=== PATIENT | female | born 1985 | race Caucasian/White ===

== ENCOUNTER 2022-07-03 22:57 | Emergency (ER) | payer BC, SELFPAY ==
[2022-07-03 23:00] VITALS: RESP 18; O2SAT 99
[2022-07-03 23:15] VITALS: BP 145/78; PULSE 78; RESP 18; TEMP 36.4; O2SAT 99; BMI 35.5
--- NOTE | 2022-07-03 23:15 | ED_ITS ---
HPI - Skin/Abscess/Foreign Bdy General Chief complaint: Unspecified Complaint, Adult Stated complaint: Staph infection on hands Time Seen by Provider: 07/03/22 23:06 History of Present Illness HPI narrative: Patient is a 36-year-old woman who comes in with dermatitis on her right posteri or hand. This apparently has been cultured and positive for staph. It is noted that skin cultures are no torn slightly patient is Marii was treated with Bactroban topically in Keflex but she has developed hives from the Keflex. She is in changed to clindamycin. She now has worsening symptoms of dermatitis in the right posterior hand she AR states that her hives which are being treated with hydroxyzine are improving no other problems have been noted no mucous membrane meals. Related Data Home Medications Medication Instructions Recorded Confirmed dicloxacillin 250 mg capsule 500 mg PO QID 07/03/22 07/03/22 hydroxyzine HCl 25 mg tablet 25 mg PO Q6H PRN 07/03/22 07/03/22 Previous Rx's Medication Instructions Recorded mupirocin calcium 2 % topical cream 1 applic topical BID Dermatitis 07/03/22 #30 grams Allergies Allergy/AdvReac Type Severity Reaction Status Date / Time cephalexin [From Keflex] Allergy Intermediate Rash Verified 07/03/22 23:15 sulfamethoxazole AdvReac Mild Headache Verified 07/03/22 23:15 [From Sulfamethoxazole-Trimethoprim] trimethoprim AdvReac Mild Headache Verified 07/03/22 23:15 [From Sulfamethoxazole-Trimethoprim] Review of Systems Status of ROS: Reports: 10 or more systems reviewed and unremarkable except as noted in History and below PFSH PFS Medical History (Updated 07/03/22 @ 23:54 by Jalen Leo RN) ADD (attention deficit disorder) without hyperactivity Adjustment disorder with mixed anxiety and depressed mood Closed nondisplaced fracture of fifth metatarsal bone of left foot Surgical History (Updated 07/03/22 @ 23:54 by Jalen Leo RN) H/O wisdom tooth extraction Social History Smoking Status: Former smoker How often do you have a drink containing alcohol: never How often do you have six or more drinks on one occasion: Never AUDIT-C Alcohol total score: 0 Non-prescribed substance use: denies use Exam Narrative: Exam Narrative: EXAM GENERAL: Patient appears comfortable and well. THYROID: no thyroid nodules or thyromegaly. LYMPH: No supraclavicular or cervical lymphadenopathy. SKIN: Striking dermatitis on the posterior aspect of the right hand with fading hives EXT: No dependent lower extremity pedal edema. HEART: Regular rate and rhythm with no murmurs, rubs, or gallops. LUNGS: Clear to auscultation bilaterally with no crackles or wheezes. ABD: Soft, non tender, non distended. PSYCH: Good eye contact, speech is not pressured. Course Vital Signs Vital signs: Initial Vital Signs Respiratory Rate 18 07/03/22 23:00 Vital Signs Respiratory Rate 18 07/03/22 23:00 Temperature 97.6 F 07/03/22 23:59 Pulse Rate 74 07/03/22 23:59 Respiratory Rate 18 07/03/22 23:59 Blood Pressure 135/74 07/03/22 23:59 Pulse Oximetry 99 07/03/22 23:48 Oxygen Delivery Method 07/03/22 23:48 MDM - Skin/Abscess/Foreign Bdy MDM Narrative Medical decision making narrative: Patient has an amazing dermatitis. I do think that continued treated with antibiotics is reasonable. I regret cindy Almodovar. Will continue her clindamycin. I renewed her prescription for Bactroban and we did dress her dermatitis tonight in the emergency room well. I do suspect she will need see a black mill operator does appears to be a very severe rash. Clear. Discharge Plan Discharge Clinical Impression: Dermatitis Patient Disposition: Home, Self-Care Condition: Stable Instructions: Dermatitis (ED) Additional Instructions: monitor for signs/symptoms of infection. f/u with PCP in next 3-4 days if no improvement Activity Level: No Restrictions Discharge Diet: Regular Prescriptions: New mupirocin calcium 2 % cream 1 applic topical BID Qty: 30 0RF No Action dicloxacillin 250 mg capsule 500 mg PO QID Label Comments: take 1 capsule by mouth (500mg) by mouth 4 times daily before meals and at bedtime for 5 days. hydroxyzine HCl 25 mg tablet 25 mg PO Q6H PRN Stand Alone Forms: [facility] Info Instructions
--- NOTE | 2022-07-03 23:20 | ED.NURSE ---
updated Dr. Mathur about conflict between rocephin as she is allergic to kefex. md xie it was ok to give.
[2022-07-03] MEDS: LIDOCAINE 1% 5 ml (pf) 5 ML VIAL 2.1 ML IM (23:30)
[2022-07-03] MEDS: MUPIROCIN 1 GM PACKET 1 APPLIC TOPICAL (23:30)
[2022-07-03] MEDS: cefTRIAXone 1 GM VIAL IM (23:30)
[2022-07-03 23:48] VITALS: BP 135/74; PULSE 74; RESP 18; TEMP 36.4; O2SAT 99
[2022-07-03 23:59] VITALS: BP 135/74; PULSE 74; RESP 18; TEMP 36.4
== END 2022-07-03 23:59 | disposition home or self-care (01) ==
PROVIDERS: Emergency Provider Internal Medicine; PCP Physician Assistant Medical
DX: L30.9 Dermatitis, unspecified (principal)
CPT/HCPCS: 96372; 99283; 99284; A9270; J0696

== ENCOUNTER 2024-01-09 12:52 | Emergency (ER) | payer BC, SELFPAY ==
[2024-01-09 13:02] VITALS: BP 136/75; PULSE 82; RESP 18; TEMP 37.1; O2SAT 98; BMI 35.4
--- NOTE | 2024-01-09 13:46 | ED.NURSE ---
Per MD, PD contacted [facility]. No further orders received.
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
[2024-01-09 14:26] LABS: Ur HCG Qualitative* Negative (Negative)
--- NOTE | 2024-01-09 16:03 | ED.NURSE ---
notified of Pt request for pain meds and questions about results. Report given to ANDREW Morris.
[2024-01-09] MEDS: AZITHROMYCIN 250 MG TABLET 1000 MG PO (17:17)
[2024-01-09] MEDS: cefTRIAXone 250 MG VIAL IM (17:18)
== END 2024-01-09 17:26 | disposition home or self-care (01) ==
PROVIDERS: Emergency Provider Emergency Medicine Emergency Medical Services; PCP Physician Assistant Medical
DX: R07.89 Other chest pain (principal); M54.9 Dorsalgia, unspecified; T74.21XA Adult sexual abuse, confirmed, initial encounter
CPT/HCPCS: 81025; 96372; 99284; A9270; J0696

== ENCOUNTER 2025-02-11 14:48 | Emergency (ER) | payer BC, SELFPAY ==
--- OUTSIDE RECORDS SUMMARY | 2025-02-11 14:51 | XMS_ITS | Clinical Summary ---
Author Organization [facility] Address [address] [place] [id number] Care Team Providers Care Rapid Extractor Operator Name Role Phone Ania James Primary Care Provider Allergies Active Allergy Reactions Criticality Noted Date Comments Unlisted Allergen (Include Detail In Comments) Rash 01/07/2012 Gold metals and some Acne medication Shellfish Containing Products Hives 05/04/2013 Sulfamethoxazole-Trimethop rim Headache 06/26/2011 Medications rx EPINEPHrine (EPIPEN) 0.3 mg/0.3 mL injection (ED DC MED)Indications :Shellfish allergy Inject 0.3 mg intramuscular one time if needed for Allergic Reaction. 0.3 mL 10/20/20 21 Active hydrOXYzine HCL (ATARAX) 25 mg tabletIndicatio ns:Hives Take 1 Tablet (25 mg) by mouth every 6 hours if needed for Itching. 30 Tablet 07/02/20 22 025 Discontin ued(*Charlee ent states no longer taking) clobetasol cream 0.05% (TEMOVATE) 0.05 % cream 03/05/20 23 025 Discontin ued(*Charlee ent states no longer taking) Active Problems Problem Noted Date Diagnosed Date Adjustment disorder with mixed anxiety and depre ssed mood 06/07/2013 Overview (06/07/2013): Rule out Generalized Anxiety Disorder/ Dysthymia Attention deficit disorder without mention of hy peractivity 06/07/2013 Pap smear for cervical cancer screening 11/29/19 12 Overview (02/03/2024): 12/2011 LSIL 12/2011 colpo with CIN1 06/2012 NIL 07/2013 NIL 06/2015 NIL/HPV negative 01/2019 ASCUS/HPV negative 10/2020 NIL/HPV negative 12/2023 NIL/HPV Negative Plan: Pap and HPV due 12/2028 Resolved Problems Problem Noted Date Diagnosed Date Resolved Date Closed nondisplaced fracture of fifth metatarsal bone of left foot 07/26/2017 01/29/2023 care, first 05/17/2014 02/12/2015 Overview (11/19/2014): GBS negative Supervision of normal first 04/18/2014 02/12/2015 Vitamin D deficiency 07/09/2010 023 Hyperinsulinism 06/21/2009 01/29/2023 Contraceptive surveillance, unspecified 10/11/2007 01/29/2023 Routine general medical exam ination at a health care facility 02/10/2007 02/12/2015 Overview (02/10/2007): pap smear, 11/05/06 Encounters Date Type Department Care Team Description 01/24/2025 2:20 PM FORENSIC ANTHROPOLOGIST Office Visit [facility] [address] [place] [address] Reece Pinzon MD Follow Up (Follow up pendular nystagmus ) 01/24/2025 Travel from Last 3 Months Immunizations Immunization Administration Dates Next Due DTaP 06/06/1986,04/11/1986,02/07/1986 Hepatitis A (Adult) 07/04/2020 Influenza, IIV4 09/17/2015,09/25/2014 Polio Virus, Unspecified 04/11/1986,02/07/1986 Td (Age >=7 Years) 06/17/1998 Tdap 05/16/2018,09/25/2014,06/05/2009 Family History Medical History Relation Name Comments Good Health Father adopted Ulcers Father Hyperlipidemia Maternal Grandfather Diabetes Mother Pre-diabetes Relation Name Status Comments Father Alive Maternal Grandfather Mother Alive Social History Tobacco Use Types Packs/Day Years Used Date Smoking Tobacco: Former Cigarettes 0.1 1 2 005 - 2006 Cigars Smokeless Tobacco: Never Tobacco Cessation:Counseling Given: Yes Alcohol Use Standard Drinks/Week Comments Yes 0 (1 standard drink = 0.6 oz pur e alcohol) socially PHQ-2 Answer Date Recorded PHQ-2 TOTAL SCORE 6 03/07/2024 Social Connections Answer Date Recorded Do you often feel lonely or isolated from those around you? 4 07/24/2024 Financial Resource Strain Answer Date R ecorded Difficulty of Paying Living Expenses 1 07/24/2024 Difficulty of Paying Living Expenses 2 07/24/2024 Food Insecurity Answer Date Recorded Do you worry your food will run out before you are able to buy more? 1 07/24/2024 Transportation Needs Answer Date Record ed Does lack of transportation keep you from medica l appointments? 1 07/24/2024 Does lack of transportation keep you from work, meetings or getting things that you need? 2 07/24/2024 Housing Stability Answer Date Recorded What is your housing situation today? 1 07/24/2024 Utilities Answer Date Recorded Do you have trouble paying f or utilities (for example, heat, electricity, water, phone)? 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 Not on file Not on file Obstetrics History Para Term AB IAB SAB Ectopic Multiple Livin g Live Births 1 1 1 0 0 0 0 0 0 1 1 Date Outcome GA Total Labor Labor/2nd/3rd Weight Sex Type Anes PTL Felicita A1 A5 Name Clin Term Vag Living Last Filed Vital Signs Vital Sign Reading Time Taken Comments Blood Pressure 121/80 01/24/2025 2:11 PM FORENSIC ANTHROPOLOGIST Pulse 89 01/24/2025 2:11 PM FORENSIC ANTHROPOLOGIST Temperature 36.2 C (97.1 F) 11/25/2022 10:55 AM FORENSIC ANTHROPOLOGIST Respiratory Rate 18 07/02/2022 2:40 PM CDT Oxygen Saturation 98% 01/24/2025 2:11 PM FORENSIC ANTHROPOLOGIST Inhaled Oxygen Concentration - - Weight 96.4 kg (212 lb 8 oz) 01/24/2025 2:11 PM FORENSIC ANTHROPOLOGIST Height 166.4 cm (5' 5.5) 07/02/2022 4:49 PM CDT Body Mass Index 34.82 07/02/2022 4:49 PM CDT Plan of Treatment Health Maintenance Due Date Last Done Comments BMI (ht and wt on same day) for age 18+ 04/20/2023 04/20/2022, 12/03/2021, 11/18/2021, Additional history exists COVID-19 vaccine series ( season) 2024 12/05/2021, 02/14/2021 Influenza Vaccine (#1) 2024 09/17/2015, 2013 Depression screening for age 12+ 03/07/2025 03/07/2024, 11/28/2020, 11/28/2020, Additional history exists Tetanus booster 05/16/2028 05/16/2018, 08/30, 06/05/2009, Additional history exists Pap test for age 21-65 01/21/2029 , 01/21/2024, 11/28/2020, Additional history exists Tdap Completed 05/16/2018, 08/30, 06/05/2009 HIV for age 15-65 Completed 01/21/2024, , 07/10/2015, Additional history exists Hepatitis C screening for age 18-79 Completed 01/21/2024, 04/15/2016, 01/22/2012 Pneumococcal series for age 6-49 Aged Out No longer eligible based on patient's age to complete this topic Procedures Procedure Name Priority Date/Time Associated Diagnosis Comments ANTI HIV 1/2 Routine 01/21/2024 8:16 AM FORENSIC ANTHROPOLOGIST Screen for STD (sexually transmitted disease) ANTI HCV Routine 01/21/2024 8:16 AM FORENSIC ANTHROPOLOGIST Screen for STD (sexually transmitted disease) HPV HIGH RISK Routine 01/21/2024 7:53 AM FORENSIC ANTHROPOLOGIST Screening for cervical cancer from Last 3 Months or Most Recently Relevant to Health Maintenance Results * ANTI HCV (01/21/2024 8:16 AM FORENSIC ANTHROPOLOGIST) HEPATITIS C ANTIBODY Non-Reacti ve Non-React vandana 01/21/2024 4:29 PM FORENSIC ANTHROPOLOGIST [facility] Comment:Please note, per www .CDC.gov: If a patient is known to be at high risk of HCV infection, or is symptomatic, and the physician's suspicion of HCV infection is high, HCV RNA testing is often employed and is of diagnostic value, even after an initial negative anti-HCV test result. Blood BLOOD SPECIMEN / Unknown Venipuncture / Unknown 01/21/2024 8:16 AM FORENSIC ANTHROPOLOGIST 01/21/2024 8:19 AM FORENSIC ANTHROPOLOGIST Ania FLANNERY SEND OUTS Final R esult Performing Organization Address [facility] Co de Phone Number [facility] [address] [place] [address], * ANTI HIV 1/2 (01/21/2024 8:16 AM FORENSIC ANTHROPOLOGIST) HIV-1/HIV-2 SCREEN Non-Reacti ve Non-Reacti ve 01/21/2024 4:29 PM FORENSIC ANTHROPOLOGIST [facility] Comment:HIV-1 p24 and HIV-1/ HIV-2 Ab Not Detected. Blood BLOOD SPECIMEN / Unknown Venipuncture / Unknown 01/21/2024 8:16 AM FORENSIC ANTHROPOLOGIST 01/21/2024 8:19 AM FORENSIC ANTHROPOLOGIST Ania FLANNERY SEND OUTS Final R esult Performing Organization Address [facility] Co de Phone Number [facility] [address] [place] [address], [place] * HPV HIGH RISK (01/21/2024 7:53 AM FORENSIC ANTHROPOLOGIST) TYPE 16 Negative Negative 01/25/2024 1:45 PM FORENSIC ANTHROPOLOGIST [facility] TYPE 18 Negative Negative 01/25/2024 1:45 PM FORENSIC ANTHROPOLOGIST [facility] OTHER HIGH RISK TYPES Negative Negative 01/25/2024 1:45 PM FORENSIC ANTHROPOLOGIST [facility] Other (Cervical) Non-Blood / Unknown 01/21/2024 7:53 AM FORENSIC ANTHROPOLOGIST 01/21/2024 5:32 PM FORENSIC ANTHROPOLOGIST Narrative [facility] - 01/25/2024 1:45 PM FORENSIC ANTHROPOLOGIST HPV types 16, 18, 31, 33, 35, 39, 45, 51, 52, 56, 58, 59, 66 and 68 DNA were undetectable or below the pre-set threshold. Methodology: Sage Xenia 4800 HPV Test us Ania FLANNERY MICROBIOLOGY Final R esult [facility] [address] [place] [address], from Last 3 Months or Most Recently Relevant to Health Maintenance Insurance [facility] [employer] Care Teams Rapid Extractor Operator Relationship Specialty Start Date End Date Ania James PA [address] [place] [address] PCP - General Physician Felling Machine Operator 03/27/19
[2025-02-11 15:03] VITALS: BP 155/89; PULSE 88; RESP 18; TEMP 37.1; O2SAT 98; BMI 35.4
--- NOTE | 2025-02-11 15:22 | ED_ITS ---
HPI - General Adult General Chief complaint: Abdominal Pain Stated complaint: Rectal/urinary bleeding Time Seen by Provider: 02/11/25 14:59 Source: patient Mode of arrival: ambulatory Limitations: no limitations History of Present Illness HPI narrative: 39-year-old female presenting today with rectal bleeding. States that started yesterday progressed today. She states that she has a little bit of blood in the toilet every time she has a bowel movement or she urinates. She also sees on the toilet paper when she wipes. She states that this happened a couple of years ago and she had a colonoscopy. She was told that she had internal hemorrhoids at that time. She denies feeling dizzy or lightheaded. No shortness of breath or chest pain. She denies any significant abdominal pain. No pain with urination. No diarrhea. Denies constipation, denies significant straining with bowel movements. Related Data Home Medications ?Medication ?Instructions ?Recorded ?Confirmed No Known Home Medications 04/07/24 02/11/25 Allergies Allergy/AdvReac Type Severity Reaction Status Date / Time cephalexin (From Keflex) Allergy Intermediate Rash Verified 02/11/25 15:10 sulfamethoxazole (From AdvReac Mild Headache Verified 02/11/25 15:10 Sulfamethoxazole-Trimethoprim) trimethoprim (From AdvReac Mild Headache Verified 02/11/25 15:10 Sulfamethoxazole-Trimethoprim) Review of Systems Status of ROS: Reports: 10 or more systems reviewed and unremarkable except as noted in History and below [facility] Medical History Sore throat ?J02.9 - Acute pharyngitis, unspecified (ICD-10) AOM (acute otitis media) ?H66.90 - Otitis media, unspecified, unspecified ear (ICD-10) Closed nondisplaced fracture of fifth metatarsal bone of left foot ?S92.355A - Nondisplaced fracture of fifth metatarsal bone, left foot, initial encounter for closed fracture (ICD-10) ADD (attention deficit disorder) without hyperactivity ?F98.8 - Other specified behavioral and emotional disorders with onset usually occurring in childhood and adolescence (ICD-10) Adjustment disorder with mixed anxiety and depressed mood ?F43.23 - Adjustment disorder with mixed anxiety and depressed mood (ICD-10) Surgical History H/O wisdom tooth extraction ?K08.409 - Partial loss of teeth, unspecified cause, unspecified class (ICD- 10) Social History Smoking Status: Never smoker How often do you have a drink containing alcohol: 2-3 times a week AUDIT-C Alcohol total score: 3 Non-prescribed substance use: denies use Exam Narrative: Exam Narrative: Overweight, well-developed patient in no acute distress. Alert and oriented. Answers questions appropriately. Mood and affect are appropriate. Thoughts are goal oriented and rational. No tangential or magical thinking noted. Patient speaks in full sentences without needing to catch her breath. HEENT: Normocephalic atraumatic. Pupils are equally round reactive to light. Extraocular muscles are intact. Conjunctivae are moist without any icterus noted. Moist mucous membranes. Does not appear pale. Cardiovascular: Heart is regular rate and rhythm. Lungs: Clear to auscultation bilaterally. Abdomen: Soft and nontender nondistended with normal bowel sounds. Rectal: Small external hemorrhoids that are nonthrombosed or tender. She has dried blood around the rectum. Normal rectal tone and no masses appreciated. No active bleeding. No blood around the urethra or vaginal introitus. Skin: Well perfused. Const: Vital Signs, click to edit/add: Vital Signs - 24 hr 02/11/25 15:03 Temperature 98.7 F Pulse Rate [Right Pulse Oximeter] 88 Respiratory Rate 18 Blood Pressure [Ri ght Upper Arm] 155/89 H Pulse Oximetry 98 Oxygen Delivery Me thod Room Air Course Course ED Course: Hgb 11.9 Vital Signs Vital signs: Initial Vital Signs Temperature 98.7 F 02/11/25 15:03 Temperature Source Temporal Artery Scan 02/11/25 15:03 Pulse Rate 88 02/11/25 15:03 Pulse Rhythm Regular 02/11/25 15:03 Pulse Strength 3+ Normal 02/11/25 15:03 Respiratory Rate 18 02/11/25 15:03 Blood Pressure 155/89 H 02/11/25 15:03 Blood Pressure Mean 111 H 02/11/25 15:03 Blood Pressure Position Sitting 02/11/25 15:03 Pulse Oximetry 98 02/11/25 15:03 Oxygen Delivery Method Room Air 02/11/25 15:03 Vital Signs Temperature 98.7 F 02/11/25 15:03 Pulse Rate 88 02/11/25 15:03 Respiratory Rate 18 02/11/25 15:03 Blood Pressure 155/89 H 02/11/25 15:03 Pulse Oximetry 98 02/11/25 15:03 Oxygen Delivery Method Room Air 02/11/25 15:03 Temperature 98.7 F 02/11/25 15:03 Pulse Rate 88 02/11/25 15:03 Respiratory Rate 18 02/11/25 15:03 Blood Pressure 155/89 H 02/11/25 15:03 Pulse Oximetry 98 02/11/25 15:03 Oxygen Delivery Method Room Air 02/11/25 15:03 Medical Decision Making MDM Narrative Medical decision making narrative: 39-year-old female with rectal bleeding, likely secondary to internal hemorrhoids as this is something she has had in the past. Patient will follow- up with her primary care team this week for further management. Return to ER if bleeding becomes brisk. Lab Data Labs: Lab Results 02/11/25 Range/Units 15:40 Hgb 11.9 L (12.0-16.0) gm/dL Discharge Plan Discharge Clinical Impression: Rectal bleeding Patient Disposition: Home, Self-Care Condition: Stable Additional Instructions: Recommend you follow-up with your primary care team this week to discuss next steps. If bleeding becomes more brisk and you feel dizzy or lightheaded then you should return to the ER. Prescriptions: No Action No Known Home Medications Follow Up/Referrals: Ania James PA-C [Primary Care Provider] - Stand Alone Forms: [employer] Info Instructions
--- OUTSIDE RECORDS SUMMARY | 2025-02-11 15:38 | XMS_ITS | Clinical Summary ---
Author Organization [facility] Address [address] [place] [id number] Care Team Providers [employer] T[employer] Name Role Phone Ania James Primary Care [...] Department Care Team Description 01/24/2025 2:20 PM TELEVISION MECHANIC Office Visit [facility] [place] [facility] [address] [place] [address] Reece Pinzon MD Follow Up (Follow up [...] on file Legal Sex Female 5:24 AM TELEVISION MECHANIC Gender Identity Not on file Sexual Orientation [...] Comments Blood Pressure 121/80 01/24/2025 2:11 PM TELEVISION MECHANIC Pulse 89 01/24/2025 2:11 PM TELEVISION MECHANIC Temperature 36.2 C (97.1 F) 11/25/2022 10:55 AM TELEVISION MECHANIC Respiratory Rate 18 07/02/2022 2:40 PM CDT Oxygen Saturation 98% 01/24/2025 2:11 PM TELEVISION MECHANIC Inhaled Oxygen Concentration - - Weight 96.4 kg (212 lb 8 oz) 01/24/2025 2:11 PM TELEVISION MECHANIC Height 166.4 cm (5' 5.5) 07/02/2022 4:49 [...] ANTI HIV 1/2 Routine 01/21/2024 8:16 AM TELEVISION MECHANIC Screen for STD (sexually transmitted disease) ANTI HCV Routine 01/21/2024 8:16 AM TELEVISION MECHANIC Screen for STD (sexually transmitted disease) HPV HIGH RISK Routine 01/21/2024 7:53 AM TELEVISION MECHANIC Screening for cervical cancer from Last 3 Months or Most Recently Relevant to Health Maintenance Results * ANTI HCV (01/21/2024 8:16 AM TELEVISION MECHANIC) HEPATITIS C ANTIBODY Non-Reacti ve Non-React vandana 01/21/2024 4:29 PM TELEVISION MECHANIC [facility] Comment:Please note, per www .CDC.gov: If a patient is known to be at high risk of HCV infection, or is symptomatic, and the physician's suspicion of HCV infection is high, HCV RNA testing is often employed and is of diagnostic value, even after an initial negative anti-HCV test result. Blood BLOOD SPECIMEN / Unknown Venipuncture / Unknown 01/21/2024 8:16 AM TELEVISION MECHANIC 01/21/2024 8:19 AM TELEVISION MECHANIC Ania FLANNERY SEND OUTS Final R esult Performing Organization Address [facility] Co de Phone Number [facility] [address] [place] [address], * ANTI HIV 1/2 (01/21/2024 8:16 AM TELEVISION MECHANIC) HIV-1/HIV-2 SCREEN Non-Reacti ve Non-Reacti ve 01/21/2024 4:29 PM TELEVISION MECHANIC [facility] Comment:HIV-1 p24 and HIV-1/ HIV-2 Ab Not Detected. Blood BLOOD SPECIMEN / Unknown Venipuncture / Unknown 01/21/2024 8:16 AM TELEVISION MECHANIC 01/21/2024 8:19 AM TELEVISION MECHANIC Ania FLANNERY SEND OUTS Final R esult Performing Organization Address [facility] Co de Phone Number [facility] [address] [place] [address], [place] * HPV HIGH RISK (01/21/2024 7:53 AM TELEVISION MECHANIC) TYPE 16 Negative Negative 01/25/2024 1:45 PM TELEVISION MECHANIC [facility] TYPE 18 Negative Negative 01/25/2024 1:45 PM TELEVISION MECHANIC [facility] OTHER HIGH RISK TYPES Negative Negative 01/25/2024 1:45 PM TELEVISION MECHANIC [facility] Other (Cervical) Non-Blood / Unknown 01/21/2024 7:53 AM TELEVISION MECHANIC 01/21/2024 5:32 PM TELEVISION MECHANIC Narrative [facility] - 01/25/2024 1:45 PM TELEVISION MECHANIC HPV types 16, 18, 31, 33, 35, 39, 45, 51, 52, 56, 58, 59, 66 and 68 DNA were undetectable or below the pre-set threshold. Methodology: [employer] 4800 HPV Test us Ania FLANNERY MICROBIOLOGY Final R esult [facility] [address] [place] [address], from Last 3 Months or Most Recently Relevant to Health Maintenance Insurance [facility] [employer] Care Teams [employer] Tutor Relationship Specialty Start Date End Date Ania James PA [address] [place] [address] PCP - General Physician At Home Independent Call Center Agent 03/27/19
[2025-02-11 16:00] LABS: Hemoglobin* 11.9 gm/dL (12.0-16.0)
== END 2025-02-11 16:18 | disposition home or self-care (01) ==
LOC: ED 15:36
PROVIDERS: Emergency Provider Family Medicine; PCP Physician Assistant Medical
DX: K62.5 Hemorrhage of anus and rectum (principal)
CPT/HCPCS: 36415; 85018; 99283; 99284

== ENCOUNTER 2025-04-01 09:00 | Outpatient (CLI) | payer BC, SELFPAY | END 2025-04-01 09:01 | disposition home or self-care (01) | LOC: NFLDREF 04-05 18:52 | PROVIDERS: PCP Physician Assistant Medical; Referring Provider Physician Assistant Medical; Visit Provider Nurse Practitioner Family | DX: N30.90 Cystitis, unspecified without hematuria (principal) | CPT/HCPCS: 87086 ==